=== PATIENT | female | born 1955 | race Caucasian/White ===

== ENCOUNTER 2019-05-13 16:18 | Inpatient (IN) | payer MEDICAID ==
[~2019-05-13] VITALS: Ht 170.2 cm; Wt 45.3 kg
--- NOTE | 2019-05-13 16:57 | NUR ---
Pt ambulated to room given gown, blankets, and sitting on gurney. Place on oxygen. Pt denies additional needs at this time. Larry DO at bedside assessing pt and discussing plan of care with pt. JO
[2019-05-13] MEDS ORDERED: ALBUTEROL/IPRATROPIUM 2.5MG/0.5MG, 3 ML NPPB ONE (17:00)
[2019-05-13] MEDS ORDERED: methylPREDNISolone SOD SUCC 125 MG/2 ML IV ONE (17:00)
[2019-05-13] MEDS ORDERED: ALBUTEROL/IPRATROPIUM 2.5MG/0.5MG, 3 ML ONE (17:09)
[2019-05-13 17:23] LABS: BASOPHILS # (AUTO) 0.03 x10^3/uL (0-0.1); BASOPHILS % (AUTO) 0 % (0-1); EOSINOPHILS # (AUTO) 0.04 x10^3/uL (0-0.4); EOSINOPHILS % (AUTO) 1 % (1-7); LYMPHOCYTES # (AUTO) 0.99 x10^3/uL (1-3.4); LYMPHOCYTES % (AUTO) 13 % (22-44); MD NO; MEAN CORPUSCULAR HEMOGLOBIN 31.6 pg (27.0-34.8); MEAN CORPUSCULAR HGB CONC 32.5 g/dL (32.4-35.8); MEAN CORPUSCULAR VOLUME 97.4 fL (80-100); MEAN PLATELET VOLUME 9.1 fL (7.4-10.4); MONOCYTES # (AUTO) 0.56 x10^3/uL (0.2-0.8); MONOCYTES % (AUTO) 7 % (2-9); NEUTROPHILS # (AUTO) 6.15 x10^3/uL (1.8-6.8); NEUTROPHILS % (AUTO) 79 % (42-75); PLATELET COUNT 201 x10^3/uL (130-400); RED BLOOD COUNT 4.51 x10^6/uL (3.82-5.3); RED CELL DISTRIBUTION WIDTH 13.8 % (9.6-15.2)
[2019-05-13 17:30] LABS: ALANINE AMINOTRANSFERASE 22 U/L (12-78); ALBUMIN 2.8 g/dL (3.4-5.0); CALCIUM 9.4 mg/dL (8.5-10.1); CHLORIDE 97 mmol/L (98-107); CREATININE 0.52 mg/dL (0.55-1.02)
[2019-05-13 17:33] LABS: ALKALINE PHOSPHATASE 60 U/L (45-117); BILIRUBIN,TOTAL 0.4 mg/dL (0.2-1.0); TOTAL PROTEIN 7.1 g/dL (6.4-8.2)
--- NOTE | 2019-05-13 17:39 | NUR ---
Pt given water and decaf coffee. NAD, denies any additional needs at this time. Breathing treatment received by RT, chest rise and fall equal bilaterally. WCTM
[2019-05-13 17:54] LABS: ANION GAP 3 mmol/L (5-15)
[2019-05-13] MEDS ORDERED: MAGNESIUM SULFATE PMX 2GM/50ML 50 ML IV ONE (18:00)
[2019-05-13] MEDS ORDERED: methylPREDNISolone SOD SUCC 125 MG/2 ML ONE (18:23)
[2019-05-13] MEDS ORDERED: MAGNESIUM SULFATE PMX 2GM/50ML 50 ML ONE (18:23)
[2019-05-13] MEDS ORDERED: BISACODYL 10 MG SUPP PR PRN (18:30)
[2019-05-13] MEDS ORDERED: POLYETHYLENE GLYCOL 17 GM PACKET PO PRN (18:30)
[2019-05-13] MEDS ORDERED: HEPARIN 5,000 UNITS/ML, 1ML SQ SCH (18:30)
[2019-05-13] MEDS ORDERED: ACETAMINOPHEN 325 MG TABLET PO PRN (18:30)
[2019-05-13] MEDS ORDERED: GUAIFENESIN/DM 200-20MG, 10ML UDC PO PRN (18:30)
[2019-05-13] MEDS ORDERED: ONDANSETRON ODT 4 MG PO PRN (18:30)
--- NOTE | 2019-05-13 18:30 | NUR ---
Late Entry: Pt resting in [facility]. NAD, denies additional needs at this time. Call light within reach. WCTM.
--- NOTE | 2019-05-13 19:02 | NUR ---
Bedside report to Shannon DOS SANTOS, pt care transferred at this time.
--- NOTE | 2019-05-13 19:22 | NUR ---
PT REFUSING HEPARIN INJECTION AT THIS TIME. STS IT IS PAINFUL AND SHE DOES NOT WANT ANY BRUISES.
--- NOTE | 2019-05-13 19:48 | NUR ---
REPORT TO FLOOR RN ALL QUESTIONS ADDRESSED.
[2019-05-13 20:00] VITALS: BP 109/67
[2019-05-13] MEDS: HEPARIN 5,000 UNITS/ML, 1ML SQ SCH (20:00)
[2019-05-13] MEDS ORDERED: OXYC-302 PO (20:05)
[2019-05-13] MEDS ORDERED: LORA-446 PO (20:05)
[2019-05-13 20:06] VITALS: BP 109/67
[2019-05-13] MEDS: SODIUM CHLORIDE FLUSH 10ML SYR IVF SCH (20:44)
[2019-05-13] MEDS ORDERED: CLON2TAB9 PO (21:05)
[2019-05-13] MEDS ORDERED: LORazepam 1MG TABLET PO PRN (22:00)
[2019-05-13] MEDS ORDERED: CLONAZEPAM 5 MG PO SCH (22:00)
[2019-05-13] MEDS: OXYcodone/APAP 5/325MG TABLET PO PRN (22:02)
[2019-05-13] MEDS: ACYCLOVIR 800 MG TABLET PO SCH (23:48)
[2019-05-13] MEDS: methylPREDNISolone SOD SUCC 125 MG/2 ML IVPush SCH (23:49)
[2019-05-14 00:02] VITALS: BP 124/65
[2019-05-14] MEDS: HEPARIN 5,000 UNITS/ML, 1ML SQ SCH ×3 (04:00→20:00)
[2019-05-14] MEDS ORDERED: ALBUTEROL/IPRATROPIUM 2.5MG/0.5MG, 3 ML NPPB PRN (05:00)
[2019-05-14] MEDS: methylPREDNISolone SOD SUCC 125 MG/2 ML IVPush SCH ×3 (05:46→20:38)
[2019-05-14] MEDS: ACYCLOVIR 800 MG TABLET PO SCH ×5 (05:47→22:08)
[2019-05-14 06:33] VITALS: BP 118/72
[2019-05-14 06:44] LABS: BASOPHILS % (AUTO) 0 % (0-1); EOSINOPHILS # (AUTO) 0.03 x10^3/uL (0-0.4); EOSINOPHILS % (AUTO) 1 % (1-7); LYMPHOCYTES # (AUTO) 0.47 x10^3/uL (1-3.4); LYMPHOCYTES % (AUTO) 9 % (22-44); MD NO; MEAN CORPUSCULAR HEMOGLOBIN 31.4 pg (27.0-34.8); MEAN CORPUSCULAR HGB CONC 31.8 g/dL (32.4-35.8); MEAN CORPUSCULAR VOLUME 98.8 fL (80-100); MONOCYTES # (AUTO) 0.04 x10^3/uL (0.2-0.8); MONOCYTES % (AUTO) 1 % (2-9); NEUTROPHILS # (AUTO) 4.62 x10^3/uL (1.8-6.8); NEUTROPHILS % (AUTO) 90 % (42-75); PLATELET COUNT 184 x10^3/uL (130-400); RED BLOOD COUNT 4.34 x10^6/uL (3.82-5.3); RED CELL DISTRIBUTION WIDTH 13.4 % (9.6-15.2)
[2019-05-14 06:52] LABS: CALCIUM 8.9 mg/dL (8.5-10.1); CHLORIDE 98 mmol/L (98-107); CREATININE 0.49 mg/dL (0.55-1.02)
[2019-05-14 07:03] LABS: ANION GAP 2 mmol/L (5-15)
[2019-05-14] MEDS ORDERED: BUDESONIDE 0.5 MG/2 ML INHA NEB SCH (09:00)
[2019-05-14] MEDS: SENNA/DOCUSATE TABLET PO SCH (09:16)
[2019-05-14] MEDS: SODIUM CHLORIDE FLUSH 10ML SYR IVF SCH ×2 (09:17→20:40)
[2019-05-14] MEDS: OXYcodone/APAP 5/325MG TABLET PO PRN ×2 (09:17→17:27)
[2019-05-14 14:46] VITALS: BP 108/60
[2019-05-14] MEDS: ALBUTEROL SULFATE INH PRN (17:32)
[2019-05-14 18:50] VITALS: BP 98/63
[2019-05-15 01:16] VITALS: BP 106/69
[2019-05-15] MEDS: methylPREDNISolone SOD SUCC 125 MG/2 ML IVPush SCH ×4 (02:24→20:00)
[2019-05-15] MEDS: HEPARIN 5,000 UNITS/ML, 1ML SQ SCH ×3 (04:00→20:00)
[2019-05-15] MEDS: OXYcodone/APAP 5/325MG TABLET PO PRN ×3 (04:25→20:13)
[2019-05-15] MEDS: ALBUTEROL SULFATE INH PRN ×2 (04:26→08:52)
[2019-05-15] MEDS: ACYCLOVIR 800 MG TABLET PO SCH ×5 (05:15→21:59)
[2019-05-15 06:35] VITALS: BP 101/57
[2019-05-15] MEDS: SENNA/DOCUSATE TABLET PO SCH (08:52)
[2019-05-15] MEDS: SODIUM CHLORIDE FLUSH 10ML SYR IVF SCH ×2 (09:00→20:00)
[2019-05-15 12:33] VITALS: BP 120/65
[2019-05-15 18:44] VITALS: BP 103/56
[2019-05-16] MEDS: methylPREDNISolone SOD SUCC 125 MG/2 ML IVPush SCH ×2 (01:56→09:57)
[2019-05-16 02:00] VITALS: BP 108/61
[2019-05-16] MEDS: HEPARIN 5,000 UNITS/ML, 1ML SQ SCH (04:00)
[2019-05-16] MEDS: ACYCLOVIR 800 MG TABLET PO SCH ×2 (05:36→09:57)
[2019-05-16] MEDS: OXYcodone/APAP 5/325MG TABLET PO PRN (05:36)
[2019-05-16] MEDS ORDERED: PRED20TA PO (08:49)
[2019-05-16] MEDS: SODIUM CHLORIDE FLUSH 10ML SYR IVF SCH (09:57)
[2019-05-16] MEDS: SENNA/DOCUSATE TABLET PO SCH (09:57)
== END 2019-05-16 10:50 | disposition home or self-care (01) | DRG 189 ==
LOC: ED 17:33 → EDIP 17:43 → 4WST 19:47
PROVIDERS: ADMIT Internal Medicine; ATTEND Family Medicine
DX: J96.21 Acute and chronic respiratory failure with hypoxia (principal); E43 Unspecified severe protein-calorie malnutrition; F11.20 Opioid dependence, uncomplicated; J44.1 Chronic obstructive pulmonary disease with (acute) exacerbation; Z68.1 Body mass index [BMI] 19.9 or less, adult; F41.9 Anxiety disorder, unspecified; G89.29 Other chronic pain; M54.9 Dorsalgia, unspecified; Z87.891 Personal history of nicotine dependence
CPT/HCPCS: 36415; 84145; 96365; 96375; 99285; J7626; 71045; 80048; 80053; 85025; 87040; 93005; G0378; J2930; J3475